=== PATIENT | male | born 1955 | race Caucasian/White ===

== ENCOUNTER 2017-03-06 21:03 | Emergency (ER) | payer OTHER ==
--- NOTE | 2017-03-06 23:47 | ED ORDER SUMMARY ---
..... Patient: JATINDER MARSHALL OrderSheet Located Within [facility] VisitID: [id number] [place] [address] 62y, M Registration Date/Time: 03/06/2017 ORDER SHEET Weight: 100.6 kg (stated) Allergies: No Known Drug Allergy GENERAL ORDERS: CBC w Diff Urgent (22:02 03/06/2017 DDean R.N. per protocol) (Ack 22:03 LMuller) (22:04 DDean R.N.) UA-Culture if indicated Urgent (22:02 03/06/2017 DDean R.N. per protocol) (Ack 22:03 LMuller) (22:40 JQuivey R.N.) Amylase Urgent (22:02 03/06/2017 DDean R.N. per protocol) (Ack 22:03 LMuller) (22:04 DDean R.N.) Lipase Urgent (22:02 03/06/2017 DDean R.N. per protocol) (Ack 22:03 LMuller) (22:04 DDean R.N.) BMP Urgent (22:02 03/06/2017 DDean R.N. per protocol) (Ack 22:03 LMuller) (22:04 DDean R.N.) (Cancelled: Other22:13 Jill VIDAL) CMP Urgent (22:13 03/06/2017 Jill VIDAL) (Ack 22:16 LMuller) (22:16 LMuller) MEDICATION ORDERS: IV FLUIDS: IV Saline Lock (22:00 03/06/2017 DDean R.N. per protocol) (22:02 DDean R.N.) IV NS : initial bolus none -, then 250 mL/hr for X1 (NOW) (22:03 03/06/2017 DDean R.N. per protocol) (22:04 DDean R.N.) ORDER SHEET NOTES: [Electronically signed by Holden Rosario R.N. (00:07 03/07/2017)] [Electronically signed by Pablo Orellana MD (04:12 03/07/2017)] [Electronically locked/signed by Holden Rosario R.N. (00:07 03/07/2017)]
--- NOTE | 2017-03-06 23:47 | ED ORDER SUMMARY ---
..... Patient: JATINDER MARSHALL OrderSheet [facility] VisitID: [id number] [place] [address] 62y, M Registration Date/Time: 03/06/2017 ORDER SHEET Weight: 100.6 kg (stated) Allergies: No Known Drug Allergy GENERAL ORDERS: CBC w Diff Urgent (22:02 03/06/2017 DDean R.N. per protocol) (Ack 22:03 LMuller) (22:04 DDean R.N.) UA-Culture if indicated Urgent (22:02 03/06/2017 DDean R.N. per protocol) (Ack 22:03 LMuller) (22:40 JQuivey R.N.) Amylase Urgent (22:02 03/06/2017 DDean R.N. per protocol) (Ack 22:03 LMuller) (22:04 DDean R.N.) Lipase Urgent (22:02 03/06/2017 DDean R.N. per protocol) (Ack 22:03 LMuller) (22:04 DDean R.N.) BMP Urgent (22:02 03/06/2017 DDean R.N. per protocol) (Ack 22:03 LMuller) (22:04 DDean R.N.) (Cancelled: Other22:13 Jill VIDAL) CMP Urgent (22:13 03/06/2017 Jill VIDAL) (Ack 22:16 LMuller) (22:16 LMuller) MEDICATION ORDERS: IV FLUIDS: IV Saline Lock (22:00 03/06/2017 DDean R.N. per protocol) (22:02 DDean R.N.) IV NS : initial bolus none -, then 250 mL/hr for X1 (NOW) (22:03 03/06/2017 DDean R.N. per protocol) (22:04 DDean R.N.) ORDER SHEET NOTES: [Electronically signed by Holden Rosario R.N. (00:07 03/07/2017)] [Electronically signed by Pablo Orellana MD (04:12 03/07/2017)] [Electronically locked/signed by Holden Rosario R.N. (00:07 03/07/2017)]
--- NOTE | 2017-03-06 23:47 | ED CLINICAL REPORT ---
Clinical Report - Physicians/Mid Levels [facility] [address] [place] [address] 03/06/2017 21:06 Patient: JATINDER MARSHALL Time Seen: 21:30. Arrived- By private vehicle. Historian- patient and family. HISTORY OF PRESENT ILLNESS Chief Complaint: VOMITING. This started last night and is still present. It was abrupt in onset and has been intermittent. Recent travel- [facility] (about 2 months ago). He has had nausea. He has had vomiting. The vomiting has occurred twice. No blood-tinged emesis or coffee-grounds emesis. No diarrhea, black stools, bloody stools, abdominal pain or constipation. No flank pain, history of possible bad food exposure or known contact with a sick individual. Has not recently been camping or on antibiotics. (the patient underwent left inguinal hernia repair 6 days ago. He has been having intermittent doses of oxycodone for pain since then. His gumming machine operator reports that he has seemed more confused and that his bout of vomiting today developed after he had some dizziness attributed to the oxycodone.). Recent medical care: The patient was seen recently at another facility in a clinic. REVIEW OF SYSTEMS No chills, fever, calf pain, chest pain or cough. No difficulty breathing, pedal edema, palpitations or urinary problems. He has experienced sweats. All systems otherwise negative, except as recorded above. PAST HISTORY Problems: Developmental Disability . HTN. Elevated PSA . BPH without obstruction . Colon polyps. Additional Surgeries: Tonsillectomy. Medications: Benadryl Allergy Oral (Tablet 25 mg) 1 tablet, [prn allergies. Bisacodyl Oral 5 mg `` 2 tabs every day . Docusate Calcium Oral 100mg 1-2 daily prn constipation . Ondansetron HCl Oral (Tablet 4 mg) 1 tablet, 8 as needed. Percocet Oral 5/325 mg, 1-2 tabs every 6 hrs prn pain . Allergies: No Known Drug Allergy. SOCIAL HISTORY Never smoker. No alcohol use or drug use. FAMILY HISTORY Heart disease in first-degree relative (mother and father), grandparent. ADDITIONAL NOTES The nursing notes have been reviewed. PHYSICAL EXAM Vital Signs: 03/06/2017 21:22 BP: 138/93. HR: 114. RR: 18. O2 saturation: 96%. Temp: 99.1 F. Have been reviewed. Appearance: Alert. Eyes: Pupils equal, round and reactive to light. ENT: Pharynx normal. Neck: Normal inspection. Neck supple. CVS: Normal heart rate and rhythm. Heart sounds normal. Respiratory: No respiratory distress. Breath sounds normal. Abdomen: Soft and nontender. Bowel sounds normal. No organomegaly. No mass. Back: Normal inspection. : ( well-healing left sided hernia incision. Clean dry and intact surrounding erythema and increased warmth or tenderness. There was ecchymosis noted extending down into the scrotum). No scrotal mass or swelling or tenderness present. Skin: Skin warm and dry. Normal skin color. Normal skin turgor. Extremities: Extremities exhibit normal ROM. No lower extremity edema. LABS, X-RAYS, AND EKG Laboratory Tests: UA-Culture if indicated: (MED: 03/06/2017 22:38) ( MsgRcvd 03/06/2017 22:54) Final results Test Result Flag Units (Reference) URINE COLOR YELLOW URINE APPEARANCE CLEAR URINE GLUCOSE NEGATIVE (NEGATIVE) URINE BILIRUBIN NEGATIVE (NEGATIVE) URINE KETONE NEGATIVE (NEGATIVE) URINE SPECIFIC GRAVITY 1.010 (1.010-1.030) URINE PH 6.5 (5.0-8.0) URINE PROTEIN NEGATIVE (NEGATIVE) URINE UROBILINOGEN 4.0 EU/dL (0.2-1.0) The urobilinogen reagent area may react with interferingsubstances known to react with Ronaldo's reagent such asp-aminosalicylic acid and sulfonamides. Atypical colorreactions may be obtained in the presence of highconcentrations of p-aminobenzoic acid. The absence ofurobilinogen cannot be determined with this test. URINE NITRITE NEGATIVE (NEGATIVE) URINE BLOOD NEGATIVE (NEGATIVE) URINE LEUK ESTERASE NEGATIVE (NEGATIVE) URINE RBC 0-1 rbc/hpf (0-1) URINE WBC 0-1 wbc/hpf (0-1) URINE EPITHELIAL CELLS 0-1 EPI/hpf (0-5) URINE BACTERIA NONE SEEN (NONE SEEN) URINE COMMENT CULT NOT INDICATED URINE CULTURES ARE SET-UP BASED ON THE FOLLOWING CRITERIA:POSITIVE NITRITEPOSITIVE LEUKOCYTE ESTERASEGREATER THAN 10 WHITE BLOOD CELLSMODERATE (2+) OR GREATER BACTERIA CBC w Diff: (MED: 03/06/2017 21:50) ( [facility] 03/06/2017 22:08) Final results Test Result Flag Units (Reference) WHITE BLOOD COUNT 12.9 H K/uL (4.5-11.5) RED BLOOD COUNT 4.50 M/uL (4.50-5.90) HEMOGLOBIN 13.4 L gm/dL (13.5-17.5) HEMATOCRIT 40.2 L % (41.0-53.0) MEAN CELL VOLUME 89 fL (80-100) MEAN CORPUSCULAR HGB 30 pg (26-34) MEAN CORPUSCULAR HGB CONC 33 g/dL (31-37) RED CELL DISTRIBUTION WIDTH 13.2 % (11.6-14.8) PLATELET COUNT 271 K/uL (150-400) NEUTROPHIL % 83.8 H % (50-75) LYMPH % 4.2 L % (25-40) MONO % 11.4 % (3-14) EOSINOPHIL % 0.6 % (0-4) BASOPHIL % 0 % (0-2) CMP: (MED: 03/06/2017 21:50) ( IlgRcvd 03/06/2017 22:34) Final results Test Result Flag Units (Reference) GLUCOSE 155 H mg/dL (70-110) BUN 14 mg/dL (7-18) CREATININE 0.7 mg/dL (0.6-1.3) Estimated GFR >60 mL/min Estimated GFR- >60 mL/min Note: Persistent reduction over 3 months in eGFR<60 mL/min/1.73 m2 defines CKD. Patients with eGFR values>=60 mL/min/1.73 m2 may also have CKD if evidence ofpersistent proteinuria. Additional information may be foundat www.[email or web address].org. SODIUM 139 mmol/L (136-145) POTASSIUM 3.7 mmol/L (3.5-5.1) CHLORIDE 104 mmol/L (98-107) CARBON DIOXIDE 26 mmol/L (21-32) CALCIUM 8.7 mg/dL (8.5-10.1) TOTAL PROTEIN 6.7 g/dL (6.4-8.2) ALBUMIN 3.2 L g/dL (3.3-5.0) BILIRUBIN, TOTAL 1.4 H mg/dL (0.0-1.0) ALKALINE PHOSPHATASE 71 U/L (46-116) AST (SGOT) 21 U/L (15-37) ALT (SGPT) 26 U/L (12-78) BMP: (MED: 03/06/2017 21:50) ( MsgRcvd 03/06/2017 22:24) Final results Test Result Flag Units (Reference) GLUCOSE Test not performed mg/dL (70-110) BUN Test not performed mg/dL (7-18) CREATININE Test not performed mg/dL (0.6-1.3) Estimated GFR Test not performed mL/min Estimated GFR- Test not performed mL/min SODIUM Test not performed mmol/L (136-145) POTASSIUM Test not performed mmol/L (3.5-5.1) CHLORIDE Test not performed mmol/L (98-107) CARBON DIOXIDE Test not performed mmol/L (21-32) CALCIUM Test not performed mg/dL (8.5-10.1) LIPASE 166 U/L (73-393) AMYLASE 40 U/L (25-115) . PROGRESS AND PROCEDURES Course of Care: Patient is stable. Patient/family counseled. Old medical records ordered. Old records unavailable. Disposition: Discharged. Condition: stable. CLINICAL IMPRESSION Vomiting. Acute mental status change with confusion (due to oxycodone). Adverse drug reaction. (oxycodone). INSTRUCTIONS No driving or operating machinery while taking medication. Drink plenty of fluids. Warnings: Further evaluation is necessary. GENERAL WARNINGS: Return or contact your physician immediately if your condition worsens or changes unexpectedly, if not improving as expected, or if other problems arise. Your Current Medications: STOP TAKING THE FOLLOWING MEDICATIONS: Percocet Oral : 5/325 mg 1-2 tabs every 6 hrs prn pain. CONTINUE TAKING THE FOLLOWING MEDICATIONS: Benadryl Allergy Oral : Tablet 25 mg, 1 tablet [prn allergies. Bisacodyl Oral : 5 mg `` 2 tabs every day. Docusate Calcium Oral : 100mg 1-2 daily prn constipation. Ondansetron HCl Oral : Tablet 4 mg, 1 tablet 8, prn. Prescription Medications: Hydrocodone/APAP 5mg/325mg: take 1 to 2 orally every 6 hours as needed for pain. Dispense fifteen (15). No refills. Zofran 4 mg: Take 1 orally every six hours as needed for nausea/vomiting. Dispense ten (10). No refills. Substitution is permissible. Understanding of the discharge instructions verbalized by patient and family. (Electronically signed by Pablo Orellana MD 03/07/2017 4:12)
--- NOTE | 2017-03-06 23:47 | ED NURSING NOTES ---
Clinical Report - Nurses [facility] [address] [place] [address] 03/06/2017 21:06 Patient: JATINDER MARSHALL TRIAGE Acuity: LEVEL 3. Chief Complaint: ABDOMINAL PAIN, NAUSEA and VOMITING and (pt had hernia surgery 03/01 started having some nausea/vomiting last night. has thrown up 2x today. was seen at [facility] earlier today with dx of constipation without mechanical blockage). --21:34 Alexsandra Vaughn R.N. 21:22 03/06/17. BP: 138/93. HR: 114. RR: 18. O2 saturation: 96%. Temp: 99.1 F. Pain level now 10. --21:34 Alexsandra Vaughn R.N. Weight: 100.6 kg stated. Height/Length: 74 inches Estimated. BMI: 28.5. --21:33 Alexsandra Vaughn R.N. Medications Benadryl Allergy Oral (Tablet 25 mg) 1 tablet, [prn allergies. Bisacodyl Oral 5 mg `` 2 tabs every day . Docusate Calcium Oral 100mg 1-2 daily prn constipation . Ondansetron HCl Oral (Tablet 4 mg) 1 tablet, 8 as needed. Percocet Oral 5/325 mg, 1-2 tabs every 6 hrs prn pain . --21:28 Alexsandra Vaughn R.N. Allergies No Known Drug Allergy. --21:25 Alexsandra Vaughn R.N. History This started yesterday. He has had nausea and vomiting. He has had abdominal pain (pt denies ad pain). SURGERY HX: Tonsillectomy. SOCIAL HX: Never smoker. No alcohol use or drug use. --21:34 Alexsandra Vaughn R.N. PROBLEMS: Developmental Disability . HTN. Elevated PSA . BPH without obstruction . Colon polyps. --21:33 Alexsandra Vaughn R.N. Interventions ID band on patient. To treatment room. --21:34 Alexsandra Vaughn R.N. PHYSICAL ASSESSMENT 21:35. Ambulatory to room. Patient gowned. GENERAL / NEURO / PSYCH: Alert. Oriented X 4. Appears in pain. RESPIRATORY: Respirations not labored. CVS: Capillary refill less than 2 seconds. GI / : Abdominal tenderness. SKIN: Skin is warm and dry. --21:35 Alexsandra Vaughn R.N. NURSING PROGRESS NOTES 21:35 03/06/17. Patient gowned. Head of bed elevated. Reassurance given. Patient identifiers checked. Call light placed in reach. Side rails up. Bed placed in lowest position. Patient ready for evaluation- chart flagged. --21:35 Alexsandra Vaughn R.N. 21:50 03/06/2017 Site #1 started via IV in the right forearm with an 20g angiocath, with aseptic technique and good blood return. Blood drawn: rainbow set. Labeled in the presence of the patient and sent to the lab. Saline lock flushed with 10 mL saline. --21:59 Alexsandra Vaughn R.N. 21:59 03/06/2017 Started bag #1 1000 mL IV Fluids IV NS (Saline); at 250 mL/hr over 4 hour(s) via site #1 via IV pump. IV patency established. IV site checked: no pain, redness, or swelling. IV flushed thoroughly pre- and post-medication administration. --22:04 Alexsandra Vaughn R.N. 22:00. ( Pt resting quietly, informed of need for UA). --22:28 Alexsandra Vaughn R.N. 22:28 03/06/17. Care transferred and report given (Holden Bill, EDRN). --22:28 Alexsandra Vaughn R.N. 22:36 Patient using urinal at bedside. --22:37 Holden Rosario R.N. 22:38. Patient ID band checked for patient name and birthdate: patient confirmed. Clean catch urine collected with return of yellow-colored clear urine; sample sent to lab for urinalysis. Specimen labeled in the presence of the patient. --22:40 Holden Rosario R.N. 23:56. The patient is calm and resting quietly. SKIN: Skin is warm and dry. Skin color within normal limits. --00:07 Holden Rosario R.N. DISPOSITION / DISCHARGE 23:53 03/06/2017 Site #1 removed upon discharge. Catheter intact. Bandage applied. --00:04 Holden Rosario R.N. 23:51 03/07/2017 IV Fluids IV NS Discontinued: bag #1 STOPPED upon discharge. Total amount infused: 400 mL. IV patency established. IV site checked: no pain, redness, or swelling. IV flushed thoroughly. --00:04 Holden Rosario R.N. Departure time: 2358. Condition at departure: stable. Discharge instructions provided and reviewed with the caregiver and patient. Reviewed medication(s) side effects, precautions, dosing and course information. Prescription(s) given to the surgical specialist. Patient verbalized understanding. Written instructions provided in Maltese. Caregiver verbalized understanding. The patient was discharged home and accompanied by Administrative Library Assistant. He left the Emergency Department ambulatory and via private vehicle. Driving (Administrative Library Assistant). FALL RISK ASSESSMENT: Fall risk assessment completed. No fall risk identified. --00:07 Holden Rosario R.N. 23:50 03/06/17. BP: 132/76. HR: 98. RR: 15. O2 saturation: 97%. Pain level now: 0/10. --00:07 Holden Rosario R.N. Locked/Released at 03/07/2017 0:07 by Holden Rosario R.N.
--- NOTE | 2017-03-06 23:47 | ED NURSING NOTES ---
Clinical Report - Nurses [facility] [address] [place] [address] 03/06/2017 21:06 Patient: JATINDER MARSHALL TRIAGE Acuity: LEVEL 3. Chief Complaint: ABDOMINAL PAIN, NAUSEA and VOMITING and (pt had hernia surgery 03/01 started having some nausea/vomiting last night. has thrown up 2x today. was seen at [facility] earlier today with dx of constipation without mechanical blockage). --21:34 Alexsandra Vaughn R.N. 21:22 03/06/17. BP: 138/93. HR: 114. RR: 18. O2 saturation: 96%. Temp: 99.1 F. Pain level now 10. --21:34 Alexsandra Vaughn R.N. Weight: 100.6 kg stated. Height/Length: 74 inches Estimated. BMI: 28.5. --21:33 Alexsandra Vaughn R.N. Medications Benadryl Allergy Oral (Tablet 25 mg) 1 tablet, [prn allergies. Bisacodyl Oral 5 mg `` 2 tabs every day . Docusate Calcium Oral 100mg 1-2 daily prn constipation . Ondansetron HCl Oral (Tablet 4 mg) 1 tablet, 8 as needed. Percocet Oral 5/325 mg, 1-2 tabs every 6 hrs prn pain . --21:28 Alexsandra Vaughn R.N. Allergies No Known Drug Allergy. --21:25 Alexsandra Vaughn R.N. History This started yesterday. He has had nausea and vomiting. He has had abdominal pain (pt denies ad pain). SURGERY HX: Tonsillectomy. SOCIAL HX: Never smoker. No alcohol use or drug use. --21:34 Alexsandra Vaughn R.N. PROBLEMS: Developmental Disability . HTN. Elevated PSA . BPH without obstruction . Colon polyps. --21:33 Alexsandra Vaughn R.N. Interventions ID band on patient. To treatment room. --21:34 Alexsandra Vaughn R.N. PHYSICAL ASSESSMENT 21:35. Ambulatory to room. Patient gowned. GENERAL / NEURO / PSYCH: Alert. Oriented X 4. Appears in pain. RESPIRATORY: Respirations not labored. CVS: Capillary refill less than 2 seconds. GI / : Abdominal tenderness. SKIN: Skin is warm and dry. --21:35 Alexsandra Vaughn R.N. NURSING PROGRESS NOTES 21:35 03/06/17. Patient gowned. Head of bed elevated. Reassurance given. Patient identifiers checked. Call light placed in reach. Side rails up. Bed placed in lowest position. Patient ready for evaluation- chart flagged. --21:35 Alexsandra Vaughn R.N. 21:50 03/06/2017 Site #1 started via IV in the right forearm with an 20g angiocath, with aseptic technique and good blood return. Blood drawn: rainbow set. Labeled in the presence of the patient and sent to the lab. Saline lock flushed with 10 mL saline. --21:59 Alexsandra Vaughn R.N. 21:59 03/06/2017 Started bag #1 1000 mL IV Fluids IV NS (Saline); at 250 mL/hr over 4 hour(s) via site #1 via IV pump. IV patency established. IV site checked: no pain, redness, or swelling. IV flushed thoroughly pre- and post-medication administration. --22:04 Alexsandra Vaughn R.N. 22:00. ( Pt resting quietly, informed of need for UA). --22:28 Alexsandra Vaughn R.N. 22:28 03/06/17. Care transferred and report given (Holden Bill, EDRN). --22:28 Alexsandra Vaughn R.N. 22:36 Patient using urinal at bedside. --22:37 Holden Rosario R.N. 22:38. Patient ID band checked for patient name and birthdate: patient confirmed. Clean catch urine collected with return of yellow-colored clear urine; sample sent to lab for urinalysis. Specimen labeled in the presence of the patient. --22:40 Holden Rosario R.N. 23:56. The patient is calm and resting quietly. SKIN: Skin is warm and dry. Skin color within normal limits. --00:07 Holden Rosario R.N. DISPOSITION / DISCHARGE 23:53 03/06/2017 Site #1 removed upon discharge. Catheter intact. Bandage applied. --00:04 Holden Rosario R.N. 23:51 03/07/2017 IV Fluids IV NS Discontinued: bag #1 STOPPED upon discharge. Total amount infused: 400 mL. IV patency established. IV site checked: no pain, redness, or swelling. IV flushed thoroughly. --00:04 Holden Rosario R.N. Departure time: 2358. Condition at departure: stable. Discharge instructions provided and reviewed with the caregiver and patient. Reviewed medication(s) side effects, precautions, dosing and course information. Prescription(s) given to the ash worker. Patient verbalized understanding. Written instructions provided in Serbian. Caregiver verbalized understanding. The patient was discharged home and accompanied by Shipping Packer. He left the Emergency Department ambulatory and via private vehicle. Driving (Shipping Packer). FALL RISK ASSESSMENT: Fall risk assessment completed. No fall risk identified. --00:07 Holden Rosario R.N. 23:50 03/06/17. BP: 132/76. HR: 98. RR: 15. O2 saturation: 97%. Pain level now: 0/10. --00:07 Holden Rosario R.N. Locked/Released at 03/07/2017 0:07 by Holden Rosario R.N.
--- NOTE | 2017-03-07 04:12 | ED MAR SUMMARY ---
..... Medication Administration Record [facility] [address] [place] [address] Patient: JATINDER MARSHALL Visit ID: [id number] 62y, M Weight: 100.6 kg Height/Length: 74 in BMI: 28.5 ALLERGIES: No Known Drug Allergy Start 21:59 03/06/2017 RoderickAlexsandra RKimN., Stop 23:51 03/07/2017 Holden Rosario RKimNKim Medication Administered: IV NS (SALINE), Dose: IV Fluids over 4 hour(s), Rate: 250 mL/hr, Dispensed: 1000 mL bag, Site: #1 right forearm. Medication Ordered: IV NS : initial bolus none -, then 250 mL/hr for X1 (NOW).
--- NOTE | 2017-03-07 04:12 | ED MED RECONCILIATION SUMMARY ---
Patient: JATINDER MARSHALL Medication Reconciliation Report [facility] VisitID: [id number] [address] [place] [address] 62y, M Registration Date/Time: 03/06/2017 Weight: 100.6 kg Height/Length: 74 in. BMI: 28.5 ALLERGIES: No Known Drug Allergy The patient's Home Medications are listed below: STOP TAKING THE FOLLOWING MEDICATIONS: Percocet Oral 5/325 mg, 1-2 tabs every 6 hrs prn pain CONTINUE TAKING THE FOLLOWING MEDICATIONS: Benadryl Allergy Oral (25 mg) 1 tablet, [prn allergies Bisacodyl Oral 5 mg `` 2 tabs every day Docusate Calcium Oral 100mg 1-2 daily prn constipation Ondansetron HCl Oral (4 mg) 1 tablet, 8 The source(s) of the original Home Medication information: Not obtained. The following Medications were given to the patient in the Emergency Department: IV NS IV Fluids bolus 0, then 250 mL/hr, administered: 03/06/2017 9:59:00 PM The following Medications were prescribed to the patient: Hydrocodone/APAP 5mg/325mg: take 1 to 2 orally every 6 hours as needed for pain. Dispense fifteen (15). No refills. -- Pablo Orellana MD Zofran 4 mg: Take 1 orally every six hours as needed for nausea/vomiting. Dispense ten (10). No refills. Substitution is permissible. -- Pablo Orellana MD
--- NOTE | 2017-03-07 04:12 | ED MAR SUMMARY ---
..... Medication Administration Record [facility] [address] [place] [address] Patient: JATINDER MARSHALL Visit ID: [id number] 62y, M Weight: 100.6 kg Height/Length: 74 in BMI: 28.5 ALLERGIES: No Known Drug Allergy Start 21:59 03/06/2017 RoderickAlexsandra RKimN., Stop 23:51 03/07/2017 Holden Rosario RKimNKim Medication Administered: IV NS (SALINE), Dose: IV Fluids over 4 hour(s), Rate: 250 mL/hr, Dispensed: 1000 mL bag, Site: #1 right forearm. Medication Ordered: IV NS : initial bolus none -, then 250 mL/hr for X1 (NOW).
--- NOTE | 2017-03-07 04:12 | ED DISCHARGE INSTRUCTIONS ---
Patient: JATINDER MARSHALL General Instructions [facility] VisitID: [id number] [place] [address] 62y, M Registration Date/Time: 03/06/2017 Vomiting. Acute mental status change with confusion (due to oxycodone). Adverse drug reaction. (oxycodone). INSTRUCTIONS No driving or operating machinery while taking medication. Drink plenty of fluids. Warnings: Further evaluation is necessary. GENERAL WARNINGS: Return or contact your physician immediately if your condition worsens or changes unexpectedly, if not improving as expected, or if other problems arise. Your Current Medications: STOP TAKING THE FOLLOWING MEDICATIONS: Percocet Oral : 5/325 mg 1-2 tabs every 6 hrs prn pain. CONTINUE TAKING THE FOLLOWING MEDICATIONS: Benadryl Allergy Oral : Tablet 25 mg, 1 tablet [prn allergies. Bisacodyl Oral : 5 mg `` 2 tabs every day. Docusate Calcium Oral : 100mg 1-2 daily prn constipation. Ondansetron HCl Oral : Tablet 4 mg, 1 tablet 8, prn. Prescription Medications: Hydrocodone/APAP 5mg/325mg: take 1 to 2 orally every 6 hours as needed for pain. Dispense fifteen (15). No refills. Zofran 4 mg: Take 1 orally every six hours as needed for nausea/vomiting. Dispense ten (10). No refills. Substitution is permissible. Understanding of the discharge instructions verbalized by patient and family. ADDITIONAL INFORMATION Vomiting [6Yr-Adult] Vomiting is a common symptom that may be due to different causes. These include gastroenteritis ("stomach flu"), food poisoning and gastritis. There are other more serious causes of vomiting which may be hard to diagnose early in the illness. Therefore, it is important to watch for the warning signs listed below. The main danger from repeated vomiting is dehydration. This is due to excess loss of water and minerals from the body. When this occurs, body fluids must be replaced. Home Care: If symptoms are severe, rest at home for the next 24 hours. You may use acetaminophen (Tylenol) or ibuprofen (Motrin, Advil) to control fever, unless another medicine was prescribed. [NOTE : If you have chronic liver or kidney disease or ever had a stomach ulcer or GI bleeding, talk with your doctor before using these medicines.] (Aspirin should never be used in anyone under 18 years of age who is ill with a fever. It may cause severe liver damage.) Avoid tobacco and alcohol use, which may worsen your symptoms. If medicines for vomiting were prescribed, take as directed. Once vomiting stops, then follow these guidelines: During The First 12-24 Hours follow the diet below: FRUIT JUICES: Apple, grape juice, clear fruit drinks, and electrolyte replacement drinks. BEVERAGES: Soft drinks without caffeine; mineral water (plain or flavored), decaffeinated tea and coffee. SOUPS: Clear broth, consomm and bouillon DESSERTS: Plain gelatin, popsicles and fruit juice bars. As you feel better, you may add 6-8 ounces of yogurt per day. During The Next 24 Hours you may add the following to the above: Hot cereal, plain toast, bread, rolls, crackers Plain noodles, rice, mashed potatoes, chicken noodle or rice soup Unsweetened canned fruit (avoid pineapple), bananas Limit caffeine and chocolate. No spices or seasonings except salt. During The Next 24 Hours Gradually resume a normal diet, as you feel better and your symptoms lessen. Follow Up with your doctor as advised if you are not improving over the next 2-3 days. Get Prompt Medical Attention if any of the following occur: Constant right-sided lower abdominal pain or increasing general abdominal pain Continued vomiting (unable to keep liquids down) for 24 hours Frequent diarrhea (more than 5 times a day); blood (red or black color) or mucus in diarrhea Reduced urine output or extreme thirst Weakness, dizziness or fainting Unusually drowsy or confused Fever of 100.4F (38C) oral or higher, not better with fever medication Yellow color of the eyes or skin Confusion Confusion is a change in a persons ability to think clearly. There may be trouble recognizing familiar people and places, or knowing what day it is. Memory, judgement and decision-making may also be affected. In severe cases there may be limited or no response to verbal commands. Confusion may occur suddenly or develop gradually over time. There are many injuries and medical conditions that can cause this problem. These include brain injury, side effect of medication, intoxication, withdrawal from drugs, infection, stroke, dementia,mental illness and other causes. The exam and testing today did not show the cause of this problem. Further testing will be needed. Specific treatment and hope for recovery depend on the cause of this symptom. Home Care: Be sure someone is with the confused person at all times. He/she should not be left alone or unsupervised. Keep medicines (prescription and [id number]-omi-oqgzvby) in a secure place, under the caregivers control. A person with confusion should not be allowed to take their own medicines.This needs to be supervised by the caregiver. Ways to help a person with confusion: Activities:Establish a daily routine. Change can be a source of stress for someone with confusion. Make a time schedule for common tasks such as: bathing, dressing, taking medicines, meals, going for walks, shopping, naps and bed time. Communication:Speak slowly and clearly with a gentle tone of voice. Use short simple words and sentences. Ask one question at a time. Do not interrupt, criticize or argue. Be calm and supportive. Use friendly facial expressions. Use pointing and touching to help communicate. If there has been loss of long-term memory, do not ask questions about past events. This would only cause frustration for the person. Behavioral tips:Use lists, signs, family photos, clocks and calendars as memory aids. Label cabinets and drawers. Try to distract, not confront, the patient. When he/she becomes frustrated or upset, redirect his/her attention to eating or some other activity of interest. Medical-Legal tips: If this proves to be a permanent condition, talk to your doctor and/or figure refinisher and repairer about getting a Power of Reimbursement Spec for health care and for financial decisions. It is best to do this while the person can still sign legal documents and make his/camilla own legal decisions. Otherwise, a court order will be required. Follow-Up with the patients doctor or as advised by our staff for further testing. Get Prompt Medical Attention if any of the following occur: Frequent falling Refusal to eat or drink Violent behavior or behavior becomes too difficult to manage at home Increased drowsiness, or failure to respond normally Increasing headache, nausea or repeated vomiting Numbness or weakness of the face, one arm or one leg Slurred speech, trouble speaking, walking or seeing Fainting spell, dizziness or seizure Unexplained fever over 100.4 F (38.0 C) oral Hydrocodone Bitartrate, Acetaminophen Oral tablet What is this medicine? ACETAMINOPHEN; HYDROCODONE (a set a TRI dalton fen; vidya droe KOE done) is a pain reliever. It is used to treat mild to moderate pain. How should I use this medicine? Take this medicine by mouth. Swallow it with a full glass of water. Follow the directions on the prescription label. If the medicine upsets your stomach, take the medicine with food or milk. Do not take more than you are told to take. Talk to your dry cell tester regarding the use of this medicine in children. This medicine is not approved for use in children. What side effects may I notice from receiving this medicine? Side effects that you should report to your doctor or health career resource technician as soon as possible: allergic reactions like skin rash, itching or hives, swelling of the face, lips, or tongue breathing problems confusion feeling faint or lightheaded, falls stomach pain yellowing of the eyes or skin Side effects that usually do not require medical attention (report to your doctor or health career resource technician if they continue or are bothersome): nausea, vomiting stomach upset What may interact with this medicine? alcohol antihistamines isoniazid medicines for depression, anxiety, or psychotic disturbances medicines for sleep muscle relaxants naltrexone narcotic medicines (opiates) for pain phenobarbital ritonavir tramadol What if I miss a dose? If you miss a dose, take it as soon as you can. If it is almost time for your next dose, take only that dose. Do not take double or extra doses. Where should I keep my medicine? Keep out of the reach of children. This medicine can be abused. Keep your medicine in a safe place to protect it from theft. Do not share this medicine with anyone. Selling or giving away this medicine is dangerous and against the law. Store at room temperature between 15 and 30 degrees C (59 and 86 degrees F). Protect from light. Keep container tightly closed. Throw away any unused medicine after the expiration date. Discard unused medicine and used packaging carefully. Pets and children can be harmed if they find used or lost packages. What should I tell my health care provider before I take this medicine? They need to know if you have any of these conditions: brain tumor Crohn's disease, inflammatory bowel disease, or ulcerative colitis drink more than 3 alcohol-containing drinks per day drug abuse or addiction head injury heart or circulation problems kidney disease or problems going to the bathroom liver disease lung disease, asthma, or breathing problems an unusual or allergic reaction to acetaminophen, hydrocodone, other opioid analgesics, other medicines, foods, dyes, or preservatives or trying to get breast-feeding What should I watch for while using this medicine? Tell your doctor or health career resource technician if your pain does not go away, if it gets worse, or if you have new or a different type of pain. You may develop tolerance to the medicine. Tolerance means that you will need a higher dose of the medicine for pain relief. Tolerance is normal and is expected if you take the medicine for a long time. Do not suddenly stop taking your medicine because you may develop a severe reaction. Your body becomes used to the medicine. This does NOT mean you are addicted. Addiction is a behavior related to getting and using a drug for a non-medical reason. If you have pain, you have a medical reason to take pain medicine. Your doctor will tell you how much medicine to take. If your doctor wants you to stop the medicine, the dose will be slowly lowered over time to avoid any side effects. You may get drowsy or dizzy when you first start taking the medicine or change doses. Do not drive, use machinery, or do anything that may be dangerous until you know how the medicine affects you. Stand or sit up slowly. There are different types of narcotic medicines (opiates) for pain. If you take more than one type at the same time, you may have more side effects. Give your health care provider a list of all medicines you use. Your doctor will tell you how much medicine to take. Do not take more medicine than directed. Call emergency for help if you have problems breathing. The medicine will cause constipation. Try to have a bowel movement at least every 2 to 3 days. If you do not have a bowel movement for 3 days, call your doctor or health career resource technician. Too much acetaminophen can be very dangerous. Do not take Tylenol (acetaminophen) or medicines that contain acetaminophen with this medicine. Many non-prescription medicines contain acetaminophen. Always read the labels carefully. Ondansetron Oral disintegrating tablet What is this medicine? ONDANSETRON (on RONA se usha) is used to treat nausea and vomiting caused by chemotherapy. It is also used to prevent or treat nausea and vomiting after surgery. How should I use this medicine? These tablets are made to dissolve in the mouth. Do not try to push the tablet through the foil backing. With dry hands, peel away the foil backing and gently remove the tablet. Place the tablet in the mouth and allow it to dissolve, then swallow. While you may take these tablets with water, it is not necessary to do so. Talk to your dry cell tester regarding the use of this medicine in children. Special care may be needed. What side effects may I notice from receiving this medicine? Side effects that you should report to your doctor or health career resource technician as soon as possible: allergic reactions like skin rash, itching or hives, swelling of the face, lips, or tongue breathing problems dizziness fast or irregular heartbeat feeling faint or lightheaded, falls fever and chills swelling of the hands and feet tightness in the chest Side effects that usually do not require medical attention (report to your doctor or health career resource technician if they continue or are bothersome): constipation or diarrhea headache What may interact with this medicine? Do not take this medicine with any of the following medications: -apomorphine -cisapride -dofetilide -dronedarone -pimozide -thioridazine -ziprasidone This medicine may also interact with the following medications: -carbamazepine -phenytoin -rifampicin -tramadol -other medicines that prolong the QT interval (cause an abnormal heart rhythm) What if I miss a dose? If you miss a dose, take it as soon as you can. If it is almost time for your next dose, take only that dose. Do not take double or extra doses. Where should I keep my medicine? Keep out of the reach of children. Store between 2 and 30 degrees C (36 and 86 degrees F). Throw away any unused medicine after the expiration date. What should I tell my health care provider before I take this medicine? They need to know if you have any of these conditions: heart disease history of irregular heartbeat liver disease low levels of magnesium or potassium in the blood an unusual or allergic reaction to ondansetron, granisetron, other medicines, foods, dyes, or preservatives or trying to get breast-feeding What should I watch for while using this medicine? Check with your doctor or health career resource technician as soon as you can if you have any sign of an allergic reaction. You have been given the following additional information: Vomiting (5Y-Adult) Confusion Hydrocodone Bitartrate, Acetaminophen Oral tablet Ondansetron Oral disintegrating tablet No driving or operating machinery while taking medication. (Electronically signed by Pablo Orellana MD 03/07/2017 4:12)
--- NOTE | 2017-03-07 04:12 | ED MED RECONCILIATION SUMMARY ---
Patient: JATINDER MARSHALL Medication Reconciliation Report [facility] VisitID: [id number] [address] [place] [address] 62y, M Registration Date/Time: 03/06/2017 Weight: 100.6 kg Height/Length: 74 in. BMI: 28.5 ALLERGIES: No Known Drug Allergy The patient's Home Medications are listed below: STOP TAKING THE FOLLOWING MEDICATIONS: Percocet Oral 5/325 mg, 1-2 tabs every 6 hrs prn pain CONTINUE TAKING THE FOLLOWING MEDICATIONS: Benadryl Allergy Oral (25 mg) 1 tablet, [prn allergies Bisacodyl Oral 5 mg `` 2 tabs every day Docusate Calcium Oral 100mg 1-2 daily prn constipation Ondansetron HCl Oral (4 mg) 1 tablet, 8 The source(s) of the original Home Medication information: Not obtained. The following Medications were given to the patient in the Emergency Department: IV NS IV Fluids bolus 0, then 250 mL/hr, administered: 03/06/2017 9:59:00 PM The following Medications were prescribed to the patient: Hydrocodone/APAP 5mg/325mg: take 1 to 2 orally every 6 hours as needed for pain. Dispense fifteen (15). No refills. -- Pablo Orellana MD Zofran 4 mg: Take 1 orally every six hours as needed for nausea/vomiting. Dispense ten (10). No refills. Substitution is permissible. -- Pablo Orellana MD
== END 2017-03-06 23:58 | disposition home or self-care (01) ==
LOC: ED SRH 21:03
DX: R41.82 Altered mental status, unspecified (principal); R41.0 Disorientation, unspecified; T40.2X5A Adverse effect of other opioids, initial encounter; I10 Essential (primary) hypertension; Z79.899 Other long term (current) drug therapy; Z79.891 Long term (current) use of opiate analgesic
CPT/HCPCS: 90004; 90047; 90100; 92235; 92530; 95059